=== PATIENT | male | born 1990 | race African-American/Black ===

== ENCOUNTER 2018-09-13 03:22 | Emergency (ER) | payer SELFPAY ==
[2018-09-13] MEDS ORDERED: Adacel (T-DAP) 0.5 ML SYRINGE ONE (04:26)
== END 2018-09-13 07:28 | disposition left against medical advice (07) ==
LOC: ERS 03:22
DX: Z53.21 Procedure and treatment not carried out due to patient leaving prior to being seen by health care provider (principal)
CPT/HCPCS: 90715

== ENCOUNTER 2020-09-11 11:09 | Emergency (ER) | payer SELFPAY ==
[2020-09-11] MEDS ORDERED: Ibuprofen 800 MG TAB ONE (12:38)
== END 2020-09-11 12:41 | disposition home or self-care (01) ==
LOC: ERS 11:09
DX: M25.511 Pain in right shoulder (principal); J45.909 Unspecified asthma, uncomplicated; F17.210 Nicotine dependence, cigarettes, uncomplicated

== ENCOUNTER 2021-04-26 04:55 | Emergency (ER) | payer SELFPAY ==
[2021-04-26] MEDS ORDERED: Metoclopramide HCl 10 MG/2 ML VIAL ONE (05:33)
[2021-04-26] MEDS ORDERED: methylPREDNISolone Sod Succ/PF 125 MG/2 ML VIAL ONE (05:33)
[2021-04-26] MEDS ORDERED: diphenhydrAMINE 50 MG/ML VIAL ONE (05:33)
[2021-04-26] MEDS ORDERED: Ketorolac Tromethamine 30 MG/ML VIAL ONE (05:33)
== END 2021-04-26 07:45 | disposition home or self-care (01) ==
LOC: ERS 04:55
DX: R51.9 Headache, unspecified (principal); J45.909 Unspecified asthma, uncomplicated; F17.210 Nicotine dependence, cigarettes, uncomplicated; Z79.899 Other long term (current) drug therapy
CPT/HCPCS: 96365; 96366; 96375; J1200; J1885; J2765; J2930

== ENCOUNTER 2022-05-01 15:05 | Emergency (ER) | payer SELFPAY ==
[2022-05-01] MEDS ORDERED: Boostrix 0.5 ML (Tdap) VIAL (>/=7 yrs of age) ONE (19:07)
[2022-05-01] MEDS ORDERED: Ketorolac Tromethamine 30 MG/ML VIAL ONE (19:07)
== END 2022-05-01 19:33 | disposition left against medical advice (07) ==
LOC: ERS 15:05
DX: Z53.29 Procedure and treatment not carried out because of patient's decision for other reasons (principal)
CPT/HCPCS: 70450; 72125; 90715; J1885